=== PATIENT | male | born 1970 ===

== ENCOUNTER 2024-10-02 06:17 | Day surgery (SDC) | payer OTHER, SELFPAY | END 2024-10-02 09:19 | disposition home or self-care (01) | LOC: GI 06:17 | PROVIDERS: ATTENDING PHYSICIAN Internal Medicine; FAMILY PHYSICIAN Family Medicine | DX: Z12.11 Encounter for screening for malignant neoplasm of colon (principal); Q43.8 Other specified congenital malformations of intestine; D12.0 Benign neoplasm of cecum; Z86.0100 Personal history of colon polyps, unspecified | CPT/HCPCS: G0105 ==